=== PATIENT | female | born 1935 | race Caucasian/White ===

== ENCOUNTER 2020-02-23 12:58 | Emergency (ER) | payer MEDICARE, BC ==
[~2020-02-23] VITALS: Ht 142.2 cm; Wt 56.8 kg
[2020-02-23 13:06] VITALS: BP 107/72; TEMP 98.2
[2020-02-23 13:21] LABS: COLLECTION METHOD CLEAN CATCH
[2020-02-23 13:31] LABS: MUCOUS Present /lpf; PH 5 (5-8); SQUAMOUS EPITHELIAL None Seen /hpf; URINE APPEARANCE Turbid; URINE BACTERIA Many /hpf; URINE BILIRUBIN Negative (NEGATIVE); URINE BLOOD Negative (NEGATIVE); URINE COLOR Yellow; URINE GLUCOSE Negative (NEGATIVE); URINE KETONE Trace (NEGATIVE); URINE LEUKOCYTE ESTERASE 3+ (NEGATIVE); URINE NITRATE Positive (NEGATIVE); URINE PROTEIN(semi-quant) 2+ (NEGATIVE); URINE RBC >50 /hpf; URINE UROBILINOGEN Negative (NEGATIVE)
[2020-02-23] MEDS ORDERED: PROAIR HFA0.09 MG/AC IH (13:37)
[2020-02-23] MEDS ORDERED: CEFTIN 250250 MG/TAB PO (13:53)
[2020-02-23 13:59] VITALS: PULSE 94
== END 2020-02-23 13:59 | disposition home or self-care (01) ==
LOC: COL.ER 12:58
PROVIDERS: Emergency Medicine
DX: N39.0 Urinary tract infection, site not specified (principal); J45.909 Unspecified asthma, uncomplicated

== ENCOUNTER 2020-11-20 12:48 | Emergency (ER) | payer MEDICARE, BC ==
[~2020-11-20] VITALS: Ht 139.7 cm; Wt 54.5 kg
[~2020-11-20 12:48] MED LIST: CEFTIN 250250 MG/TAB PO; PROAIR HFA0.09 MG/AC IH
[2020-11-20 14:18] VITALS: BP 122/78; PULSE 84; TEMP 98.2
[2020-11-20] MEDS ORDERED: LIDODERM 5% PATC1 EA TP (14:19)
== END 2020-11-20 14:32 | disposition home or self-care (01) ==
LOC: COL.ER 12:48
DX: S22.069A Unspecified fracture of T7-T8 vertebra, initial encounter for closed fracture (principal); W10.9XXA Fall (on) (from) unspecified stairs and steps, initial encounter